=== PATIENT | male | born 1980 | race Caucasian/White ===

== ENCOUNTER 2020-06-28 21:00 | Outpatient (REF) | payer BC, SELFPAY ==
[2020-06-30 16:57] LABS: COVID-19 RT-PCR UVMMC Result Positive (Negative)
== END 2020-06-28 21:20 ==
LOC: NCHCN 21:00
PROVIDERS: PCP Internal Medicine; Visit Provider Nurse Practitioner Family
DX: Z20.828 Contact with and (suspected) exposure to other viral communicable diseases (principal)
CPT/HCPCS: U0003